=== PATIENT | female | born 1990 | race Caucasian/White ===

== ENCOUNTER 2023-10-08 18:02 | Emergency (ER) | payer BC, OTHER ==
[2023-10-08 18:46] VITALS: BP 109/78; PULSE 83; RESP 18; TEMP 98.1; BMI 26.5
== END 2023-10-08 19:04 | disposition home or self-care (01) ==
LOC: FER 18:02
DX: M54.2 Cervicalgia (principal); E04.9 Nontoxic goiter, unspecified; S16.1XXA Strain of muscle, fascia and tendon at neck level, initial encounter; W01.0XXA Fall on same level from slipping, tripping and stumbling without subsequent striking against object, initial encounter
CPT/HCPCS: 99282-25